=== PATIENT | male | born 1990 | race Caucasian/White ===

== ENCOUNTER 2017-05-06 11:27 | Emergency (ER) | payer SELFPAY ==
[2017-05-06] MEDS ORDERED: Sulfameth/Trimethoprim DS 800-160mg TAB ONE (11:41)
== END 2017-05-06 11:42 | disposition home or self-care (01) ==
LOC: NAV ERS 11:27
DX: L02.424 Furuncle of left upper limb (principal)
CPT/HCPCS: 99283

== ENCOUNTER 2018-12-26 21:38 | Emergency (ER) | payer SELFPAY | END 2018-12-26 22:14 | LOC: NAV ERS 21:38 | DX: I10 Essential (primary) hypertension (principal); F90.9 Attention-deficit hyperactivity disorder, unspecified type; F32.9 Major depressive disorder, single episode, unspecified | CPT/HCPCS: 99282 ==